=== PATIENT | male | born 1960 | race Caucasian/White ===

== ENCOUNTER 2020-08-05 09:29 | Inpatient (IN) | payer BC, SELFPAY ==
[~2020-08-05] VITALS: Ht 180.3 cm; Wt 134.3 kg
[2020-08-05 09:40] VITALS: BP_SYST 138
[2020-08-05 11:20] LABS: BASOPHILS % (AUTO) 0.4 % (0.0-2.0); EOSINOPHILS % (AUTO) 0.5 % (0.0-4.0); HEMATOCRIT 45.7 % (36-54); HEMOGLOBIN 15.3 g/dL (14.0-18.0); LYMPHOCYTES % (AUTO) 10.4 % (20.5-51.5); MEAN CORPUSCULAR HEMOGLOBIN 29 pg (27-31); MEAN CORPUSCULAR HGB CONC 33 % (32-36); MEAN CORPUSCULAR VOLUME 88 fL (79.0-98.0); MONOCYTES # (AUTO) 0.5 K/uL (0.0-1.0); MONOCYTES % (AUTO) 4.7 % (1.7-9.3); NEUTROPHILS # (AUTO) 8.5 K/uL (1.8-7.7); PLATELET COUNT (AUTO) 137 K/uL (130-430); RED BLOOD CELL COUNT(AUTO) 5.22 MIL/uL (4.2-6.2); RED CELL DISTRIBUTION WIDTH 13.2 % (9.0-15.0); WHITE BLOOD COUNT (AUTO) 10.1 K/uL (4.8-10.8)
[2020-08-05 11:38] LABS: C-REACTIVE PROTEIN QUANT 2.7 mg/dL (0-0.5)
[2020-08-05 11:40] LABS: CALCIUM 8.5 mg/dL (8.4-11.0); CREATININE 1.11 mg/dL (0.55-1.30); POTASSIUM 3.9 mmol/L (3.5-5.1)
[2020-08-05 11:43] LABS: PROTHROMBIN TIME 10.4 SECS (9.5-12.5)
[2020-08-05 11:52] LABS: ALBUMIN 3.7 g/dL (3.4-4.8); TOTAL BILIRUBIN 0.7 mg/dL (0.0-1.0)
[2020-08-05] MEDS ORDERED: IOHEXOL 350 mgI/mL, 150 ML INFUS..BTL IV ONE (13:57)
[2020-08-05] MEDS ORDERED: NACL 0.9% 1,000 ML IV ONE (15:00)
[2020-08-05] MEDS ORDERED: ENOXAPARIN SODIUM 120 MG/0.8 ML SYRINGE SUBCUT ONE (15:30)
[2020-08-05] MEDS ORDERED: MUPIROCIN 2% TOPICAL OINTMENT 22 GM NS PRN (16:00)
[2020-08-05] MEDS ORDERED: POTASSIUM CHLORIDE 20 MEQ TAB.PRT.SR PO PRN (16:00)
[2020-08-05] MEDS ORDERED: MORPHINE 2 MG/ML INJ. SYRINGE IVP PRN ×2 (16:00)
[2020-08-05] MEDS ORDERED: IPRATROPIUM/ALBUTEROL SULFATE 3 ML AMPUL.NEB (DUONEB) INH PRN (16:00)
[2020-08-05] MEDS ORDERED: NALOXONE HCL 0.4 MG/ML AMP (NARCAN) IVP PRN ×2 (16:00)
[2020-08-05] MEDS ORDERED: ZOLPIDEM TARTRATE 5 MG TABLET PO PRN (16:00)
[2020-08-05] MEDS ORDERED: ONDANSETRON HCL 4 MG/2 ML VIAL IVP PRN (16:00)
[2020-08-05] MEDS ORDERED: DOCUSATE SODIUM 100 MG CAPSULE PO PRN (16:00)
[2020-08-05] MEDS ORDERED: MAGNESIUM SULFATE 50 ML IV PRN (16:00)
[2020-08-05] MEDS ORDERED: ACETAMINOPHEN 325 MG TABLET PO PRN (16:00)
[2020-08-05] MEDS ORDERED: LORazepam 2 MG/ML VIAL IVP PRN (16:00)
[2020-08-05] MEDS: PIPERACILLIN/TAZO 3.375/DEX-IS 50 ML IV SCH ×2 (16:15→18:34)
[2020-08-05 17:39] VITALS: BP_SYST 152
[2020-08-05] MEDS ORDERED: LISI40TA4 PO (18:37)
[2020-08-05] MEDS ORDERED: LIP40 PO (18:37)
[2020-08-05] MEDS ORDERED: cloNIDine HCL 0.2 MG TABLET PO PRN (19:00)
[2020-08-05 20:01] LABS: BILIRUBIN,URINE NEGATIVE (NEGATIVE); BLOOD, URINE 2+ (NEGATIVE); CLARITY/URINE CLEAR (CLEAR); COLOR,URINE YELLOW (YELLOW); GLUCOSE,URINE NEGATIVE (NEGATIVE); KETONES,URINE NEGATIVE (NEGATIVE); LEUKOCYTE ESTERASE ,URINE NEGATIVE (NEGATIVE); NITRITE, URINE NEGATIVE (NEGATIVE); PROTEIN URINE NEGATIVE (NEGATIVE); UROBILINOGEN,URINE 0.2 (0.2-1.0)
[2020-08-05 20:04] LABS: BACTERIA,URINE RARE /HPF (None Seen); WBC,URINE 0-3 /HPF (0-3)
[2020-08-05] MEDS: ENOXAPARIN SODIUM 100 MG/ML SYRINGE SUBCUT SCH (21:00)
[2020-08-05] MEDS: METOPROLOL TARTRATE 25 MG TABLET PO SCH (21:00)
[2020-08-05] MEDS: ENOXAPARIN SODIUM 30 MG/0.3 ML SYRINGE SUBCUT SCH (21:00)
[2020-08-05] MEDS: ATORVASTATIN 20 MG TABLET PO SCH (21:00)
[2020-08-05 22:00] VITALS: BP_SYST 136
[2020-08-06] MEDS ORDERED: PIPERACILLIN/TAZOBACTAM 3.375 GM/VIAL (ZOSYN) IV ONE (02:37)
[2020-08-06 05:00] VITALS: BP_SYST 138
[2020-08-06] MEDS: PIPERACILLIN/TAZO 3.375/DEX-IS 50 ML IV SCH ×4 (05:30→17:00)
[2020-08-06 08:00] VITALS: BP_SYST 150
[2020-08-06 08:19] LABS: BASOPHILS # (AUTO) 0.1 K/uL (0.0-0.2); BASOPHILS % (AUTO) 0.6 % (0.0-2.0); EOSINOPHILS # (AUTO) 0.1 K/uL (0.0-0.4); HEMATOCRIT 43.6 % (36-54); HEMOGLOBIN 14.3 g/dL (14.0-18.0); LYMPHOCYTES # (AUTO) 1.4 K/uL (1.0-5.5); MEAN CORPUSCULAR HEMOGLOBIN 29 pg (27-31); MEAN CORPUSCULAR HGB CONC 33 % (32-36); MEAN CORPUSCULAR VOLUME 88 fL (79.0-98.0); MONOCYTES # (AUTO) 0.6 K/uL (0.0-1.0); MONOCYTES % (AUTO) 5.2 % (1.7-9.3); NEUTROPHILS # (AUTO) 8.8 K/uL (1.8-7.7); NEUTROPHILS % (AUTO) 80.2 % (40.0-70.0); PLATELET COUNT (AUTO) 125 K/uL (130-430); RED BLOOD CELL COUNT(AUTO) 4.96 MIL/uL (4.2-6.2); RED CELL DISTRIBUTION WIDTH 12.8 % (9.0-15.0)
[2020-08-06 08:47] LABS: CALCIUM 8.3 mg/dL (8.4-11.0); CREATININE 1.13 mg/dL (0.55-1.30); POTASSIUM 3.6 mmol/L (3.5-5.1)
[2020-08-06] MEDS ORDERED: lisinopriL 20 MG TABLET PO SCH (09:00)
[2020-08-06] MEDS: ENOXAPARIN SODIUM 100 MG/ML SYRINGE SUBCUT SCH ×2 (09:07→21:13)
[2020-08-06] MEDS: METOPROLOL TARTRATE 25 MG TABLET PO SCH ×2 (09:07→21:20)
[2020-08-06] MEDS: ENOXAPARIN SODIUM 30 MG/0.3 ML SYRINGE SUBCUT SCH ×2 (09:07→21:14)
[2020-08-06] MEDS: lisinopriL 20 MG TABLET PO SCH (09:07)
[2020-08-06 12:00] VITALS: BP_SYST 156
[2020-08-06 16:00] VITALS: BP_SYST 144
[2020-08-06 20:00] VITALS: BP_SYST 153
[2020-08-06] MEDS: ATORVASTATIN 20 MG TABLET PO SCH (21:14)
[2020-08-06] MEDS: IPRATROPIUM/ALBUTEROL SULFATE 3 ML AMPUL.NEB (DUONEB) INH SCH (23:00)
[2020-08-07] VITALS: BP_SYST 148
[2020-08-07] MEDS: PIPERACILLIN/TAZO 3.375/DEX-IS 50 ML IV SCH ×4 (00:31→18:36)
[2020-08-07] MEDS: IPRATROPIUM/ALBUTEROL SULFATE 3 ML AMPUL.NEB (DUONEB) INH SCH ×5 (06:48→23:45)
[2020-08-07 08:05] LABS: BASOPHILS # (AUTO) 0.1 K/uL (0.0-0.2); BASOPHILS % (AUTO) 0.7 % (0.0-2.0); EOSINOPHILS # (AUTO) 0.2 K/uL (0.0-0.4); HEMATOCRIT 42.2 % (36-54); LYMPHOCYTES # (AUTO) 1.7 K/uL (1.0-5.5); LYMPHOCYTES % (AUTO) 22.3 % (20.5-51.5); MEAN CORPUSCULAR HEMOGLOBIN 29 pg (27-31); MEAN CORPUSCULAR HGB CONC 33 % (32-36); MEAN CORPUSCULAR VOLUME 88 fL (79.0-98.0); MONOCYTES # (AUTO) 0.4 K/uL (0.0-1.0); MONOCYTES % (AUTO) 5.3 % (1.7-9.3); NEUTROPHILS # (AUTO) 5.2 K/uL (1.8-7.7); NEUTROPHILS % (AUTO) 68.7 % (40.0-70.0); PLATELET COUNT (AUTO) 132 K/uL (130-430); RED BLOOD CELL COUNT(AUTO) 4.79 MIL/uL (4.2-6.2); RED CELL DISTRIBUTION WIDTH 13.5 % (9.0-15.0); WHITE BLOOD COUNT (AUTO) 7.5 K/uL (4.8-10.8)
[2020-08-07 08:25] VITALS: BP_SYST 128
[2020-08-07 08:48] LABS: CALCIUM 8.7 mg/dL (8.4-11.0); CREATININE 1.13 mg/dL (0.55-1.30); POTASSIUM 3.8 mmol/L (3.5-5.1)
[2020-08-07] MEDS: METOPROLOL TARTRATE 25 MG TABLET PO SCH ×2 (10:35→21:00)
[2020-08-07] MEDS: APIXABAN 2.5 MG TABLET PO SCH ×2 (10:35→21:00)
[2020-08-07] MEDS: lisinopriL 20 MG TABLET PO SCH (10:36)
[2020-08-07 17:10] VITALS: BP_SYST 125
[2020-08-07 20:00] VITALS: BP_SYST 147
[2020-08-07] MEDS: ATORVASTATIN 20 MG TABLET PO SCH (21:00)
[2020-08-08] VITALS: BP_SYST 138
[2020-08-08] MEDS: PIPERACILLIN/TAZO 3.375/DEX-IS 50 ML IV SCH ×4 (00:14→23:03)
[2020-08-08] MEDS: IPRATROPIUM/ALBUTEROL SULFATE 3 ML AMPUL.NEB (DUONEB) INH SCH ×4 (03:00→16:07)
[2020-08-08] MEDS: APIXABAN 2.5 MG TABLET PO SCH ×2 (08:31→22:46)
[2020-08-08 08:35] VITALS: BP_SYST 135
[2020-08-08] MEDS: METOPROLOL TARTRATE 25 MG TABLET PO SCH ×2 (08:35→22:53)
[2020-08-08] MEDS: lisinopriL 20 MG TABLET PO SCH (08:35)
[2020-08-08 08:58] LABS: BASOPHILS % (AUTO) 0.7 % (0.0-2.0); EOSINOPHILS # (AUTO) 0.1 K/uL (0.0-0.4); EOSINOPHILS % (AUTO) 2.4 % (0.0-4.0); HEMATOCRIT 42.1 % (36-54); LYMPHOCYTES % (AUTO) 17.3 % (20.5-51.5); MEAN CORPUSCULAR HEMOGLOBIN 29 pg (27-31); MEAN CORPUSCULAR HGB CONC 33 % (32-36); MEAN CORPUSCULAR VOLUME 88 fL (79.0-98.0); MONOCYTES # (AUTO) 0.2 K/uL (0.0-1.0); MONOCYTES % (AUTO) 4.2 % (1.7-9.3); NEUTROPHILS # (AUTO) 4.3 K/uL (1.8-7.7); NEUTROPHILS % (AUTO) 75.4 % (40.0-70.0); PLATELET COUNT (AUTO) 148 K/uL (130-430); RED CELL DISTRIBUTION WIDTH 13.5 % (9.0-15.0); WHITE BLOOD COUNT (AUTO) 5.8 K/uL (4.8-10.8)
[2020-08-08 09:26] LABS: CALCIUM 8.7 mg/dL (8.4-11.0); CREATININE 1.17 mg/dL (0.55-1.30); POTASSIUM 3.7 mmol/L (3.5-5.1)
[2020-08-08 10:55] VITALS: BP_SYST 135
[2020-08-08 16:25] VITALS: BP_SYST 125
[2020-08-08 20:30] VITALS: BP_SYST 129
[2020-08-08] MEDS: ATORVASTATIN 20 MG TABLET PO SCH (22:51)
[2020-08-09] MEDS: IPRATROPIUM/ALBUTEROL SULFATE 3 ML AMPUL.NEB (DUONEB) INH SCH ×4 (05:55→14:31)
[2020-08-09 06:43] LABS: CALCIUM 8.4 mg/dL (8.4-11.0); CREATININE 1.12 mg/dL (0.55-1.30); POTASSIUM 3.7 mmol/L (3.5-5.1)
[2020-08-09] MEDS: PIPERACILLIN/TAZO 3.375/DEX-IS 50 ML IV SCH ×2 (06:57→14:50)
[2020-08-09 07:08] LABS: BASOPHILS % (AUTO) 0.6 % (0.0-2.0); EOSINOPHILS # (AUTO) 0.2 K/uL (0.0-0.4); EOSINOPHILS % (AUTO) 3.2 % (0.0-4.0); HEMATOCRIT 41.3 % (36-54); HEMOGLOBIN 13.8 g/dL (14.0-18.0); LYMPHOCYTES # (AUTO) 1.3 K/uL (1.0-5.5); LYMPHOCYTES % (AUTO) 20.8 % (20.5-51.5); MEAN CORPUSCULAR HEMOGLOBIN 29 pg (27-31); MEAN CORPUSCULAR HGB CONC 33 % (32-36); MEAN CORPUSCULAR VOLUME 88 fL (79.0-98.0); MONOCYTES # (AUTO) 0.4 K/uL (0.0-1.0); MONOCYTES % (AUTO) 6.4 % (1.7-9.3); NEUTROPHILS # (AUTO) 4.2 K/uL (1.8-7.7); PLATELET COUNT (AUTO) 163 K/uL (130-430); RED BLOOD CELL COUNT(AUTO) 4.71 MIL/uL (4.2-6.2)
[2020-08-09] MEDS ORDERED: APIX2.5T PO (08:06)
[2020-08-09] MEDS ORDERED: METO25TA6 PO (08:06)
[2020-08-09] MEDS ORDERED: APIX5TAB PO (08:06)
[2020-08-09] MEDS: lisinopriL 20 MG TABLET PO SCH (09:00)
[2020-08-09] MEDS: APIXABAN 2.5 MG TABLET PO SCH (10:42)
[2020-08-09] MEDS: METOPROLOL TARTRATE 25 MG TABLET PO SCH (10:43)
== END 2020-08-09 15:38 | disposition home or self-care (01) | DRG 175 ==
LOC: SED 09:29 → STU 15:22
PROVIDERS: ADMIT General Practice; ATTEND General Practice
DX: I26.99 Other pulmonary embolism without acute cor pulmonale (principal); J18.9 Pneumonia, unspecified organism; J96.01 Acute respiratory failure with hypoxia; Z68.41 Body mass index [BMI] 40.0-44.9, adult; I82.431 Acute embolism and thrombosis of right popliteal vein; I82.411 Acute embolism and thrombosis of right femoral vein; E83.41 Hypermagnesemia; E27.9 Disorder of adrenal gland, unspecified; E66.9 Obesity, unspecified; E78.5 Hyperlipidemia, unspecified; I10 Essential (primary) hypertension; Z20.828 Contact with and (suspected) exposure to other viral communicable diseases
CPT/HCPCS: 36415; 36600; 71045; 71275; 74170-TC; 76376; 80048; 80053; 81000-TC; 82550-TC; 82728; 82803-TC; 83036; 83605; 83615-TC; 83735-TC; 83880; 84484; 85025; 85379; 85384-TC; 85610-TC; 85730-TC; 86140; 86886; 86900; 86901; 87040-TC; 87086; 93005; 93306; 93970; 94640; 94660; 94760; 96372; 99291; G0378; J1650; J2543; J7030; Q9967; U0003